=== PATIENT | female | born 1985 | race Caucasian/White ===

== ENCOUNTER 2016-12-31 03:45 | Emergency (ER) | payer OTHER ==
[2016-12-31 03:51] VITALS: RESP 18
[2016-12-31] MEDS ORDERED: ONDANSETRON 4 MG/2 ML VIAL ONE (03:54)
[2016-12-31] MEDS ORDERED: NS 1,000 ML IV ONE ×2 (04:07→04:46)
[2016-12-31] MEDS ORDERED: ONDANSETRON 4 MG/2 ML VIAL IVP ONE (04:07)
--- NOTE | 2016-12-31 04:12 | EDPHY ---
H & P Stated Complaint: NAUSEA AND VOMITING SINCE 7 P.M. AFTER EATING SOMETHING, FAMILY SICK WEL Time Seen by Provider: 12/31/16 03:57 HPI/ROS: Chief Complaint: Nausea, vomiting, diarrhea HPI: 31-year-old female had abrupt onset of nausea and vomiting at 7 o'clock yesterday evening. She has been out of vomiting 2 or 3 times every hour since then. Also developed some diarrhea. No blood, melena or hematemesis. Has had some crampy abdominal pain but this usually goes after she has an emesis. Family members that she had mother's Day with have similar symptoms. No fevers or chills. No urinary symptoms. ROS: 10 point Review of Systems is negative except as noted in the HPI. PMH: Endometriosis Medications: None Allergies: No known drug allergies Social History: No smoking, rare alcohol, no recreational drug use Family History: non-contributory Physical Exam: Gen: Awake, Alert, No Distress HEENT: Nose: no rhinorrhea Eyes: PERRLA, EOMI Mouth: Dry mucous membranes Neck: Supple, no JVD Chest: nontender, lungs clear to auscultation Heart: S1, S2 normal, no murmur Abd: Soft, non-tender, no guarding Back: no CVA tenderness, no midline tenderness Ext: no edema, non-tender Skin: no rash Neuro: CN II-XII intact, Sensation grossly intact, Strength 5/5 in bilateral upper and lower extremities - Personal History LMP (Females 10-55): IUD In Place Current Tetanus/Diphtheria Vaccine: Yes Current Tetanus Diphtheria and Acellular Pertussis (TDAP): Yes - Medical/Surgical History Hx Asthma: No Hx Chronic Respiratory Disease: No Hx Diabetes: No Hx Cardiac Disease: No Hx Renal Disease: No Hx Cirrhosis: No Hx Alcoholism: No Hx HIV/AIDS: No Hx Splenectomy or Spleen Trauma: No Other PMH: DENIES - Social History Smoking Status: Never smoked Constitutional: Initial Vital Signs Temperature (C) 36.9 C 12/31/16 03:48 Heart Rate 92 12/31/16 03:48 Respiratory Rate 18 12/31/16 03:48 Blood Pressure 113/71 12/31/16 03:48 O2 Sat (%) 97 12/31/16 03:48 O2 Delivery Mode Room Air Allergies/Adverse Reactions: No Known Allergies Allergy (Unverified 12/31/16 03:51) Home Medications: Medication Instructions Recorded Ondansetron Odt [Zofran Odt 4 mg 4 mg PO Q4 PRN #10 tab 12/31/16 (*)] Medical Decision Making - Data Points Medications Given: Discontinued Medications Sodium Chloride (Ns) 1,000 mls @ 0 mls/hr IV ONCE ONE PRN Reason: Wide Open Stop: 12/31/16 04:08 Last Admin: 12/31/16 04:08 Dose: 1,000 mls Sodium Chloride (Ns) 1,000 mls @ 0 mls/hr IV ONCE ONE PRN Reason: Wide Open Stop: 12/31/16 04:47 Last Admin: 12/31/16 04:46 Dose: 1,000 mls Ondansetron HCl (Zofran) 4 mg IVP EDNOW ONE Stop: 12/31/16 04:08 Last Admin: 12/31/16 04:09 Dose: 4 mg Departure - Departure Disposition: Home, Routine, Self-Care Clinical Impression: Acute gastroenteritis, Dehydration Condition: Good Instructions: Ondansetron (By mouth), Gastroenteritis (ED), Acute Nausea and Vomiting (ED) Additional Instructions: You may take Zofran as needed for nausea and vomiting. Patient drink plenty of clear fluids. Follow up with primary care physician in 2-3 days for re-evaluation. Referrals: LEEANN CHARLES [Other] - As per Instructions Prescriptions: Ondansetron Odt [Zofran Odt 4 mg (*)] 4 mg PO Q4 PRN #10 tab PRN Reason: nausea
[2016-12-31] MEDS ORDERED: ONDANSETRON 4MG PREPACK#2 BTL TAKEHOME ONE (04:41)
[2016-12-31 05:43] VITALS: O2SAT 96
[2016-12-31 06:34] VITALS: BP 109/53; PULSE 84; TEMP 98.1
== END 2016-12-31 06:15 | disposition home or self-care (01) ==
DX: K52.9 Noninfective gastroenteritis and colitis, unspecified (principal); E86.0 Dehydration
CPT/HCPCS: 96374; J2405

== ENCOUNTER → 2018-09-04 | Outpatient (CLI) | payer OTHER | LOC: FIMAGING 15:24 | PROVIDERS: ATTEND Advanced Practice Midwife | DX: R10.2 Pelvic and perineal pain (principal); Z97.5 Presence of (intrauterine) contraceptive device ==